=== PATIENT | male | born 1990 | race Caucasian/White ===

== ENCOUNTER 2016-06-28 04:35 | Emergency (ER) | payer OTHER ==
[2016-06-28 04:50] VITALS: TEMP 97.8
[2016-06-28] MEDS ORDERED: MORPHINE SULFATE 4 MG/ML SYRINGE IM STA (05:14)
[2016-06-28] MEDS ORDERED: IBUPROFEN 600 MG TAB PO STA (05:14)
[2016-06-28] MEDS ORDERED: ONDANSETRON ODT 4 MG TAB PO STA (05:16)
--- NOTE | 2016-06-28 05:50 | XR ---
EXAM: XR Left Hip With Pelvis When Performed, 2 or 3 Views. CLINICAL HISTORY: Reason: Left hip pain TECHNIQUE: Two or three views of the left hip, with pelvis when performed. COMPARISON: No relevant prior studies available. FINDINGS: Bones/joints: No acute fracture or malalignment. Soft tissues: Unremarkable. IMPRESSION: No acute fracture or dislocation.
--- NOTE | 2016-06-28 05:54 | CT ---
EXAM: CT Lumbar Spine Without Intravenous Contrast. CLINICAL HISTORY: Reason: Pain TECHNIQUE: Axial computed tomography images of the lumbar spine without intravenous contrast. CTDI is 25.70 mGy and DLP is 905.00 mGy-cm COMPARISON: No relevant prior studies available. FINDINGS: Vertebrae: Unremarkable. No acute fracture. Discs/spinal canal/neural foramina: Small disc protrusion at L1-L2. No significant osseous spinal or foraminal stenosis. Soft tissues: Unremarkable. IMPRESSION: No acute findings.
--- NOTE | 2016-06-28 06:34 | ED ---
Lower Extremity Injury HPI - General Chief Complaint: Extremity Injury, Lower Stated Complaint: IHS/Hip Injury Time Seen by Provider: 06/28/16 05:03 Source: patient Mode of arrival: wheelchair Limitations: no limitations - History of Present Illness Initial Comments: Resented with the left hip pain it started about 11:30 and ended up coming home from work little early he denies any trauma no fall no prior injury to the left hip and neutrophils down to his knee. He denies any bowel or bladder dysfunction he denies any weakness In the left leg at the hip area does does cause him a lot of pain. Review of systems are otherwise negative - Related Data Previous Rx's Medication Instructions Recorded Cyclobenzaprine [Flexeril] 10 mg PO TID #25 tab 06/28/16 Diclofenac Sodium [Voltaren] 50 mg PO BID #30 tablet. 06/28/16 predniSONE 50 mg PO DAILY #5 tab 06/28/16 Allergies Allergy/AdvReac Type Severity Reaction Status Date / Time clarithromycin [From Biaxin] Allergy Nausea & Verified 06/28/16 04:51 Vomiting milk Allergy Nausea & Verified 06/28/16 04:51 Vomiting & Diarrhea venom-honey bee Allergy Anaphylaxis Verified 06/28/16 04:51 [bee venom (honey bee)] Review of Systems ROS Statement: Those systems with pertinent positive or pertinent negative responses have been documented in the HPI. ROS Other: All systems not noted in ROS Statement are negative. Past Medical History Past Medical History: Hypertension History of Any Multi-Drug Resistant Organisms: MRSA Date of last positivie culture/infection: 2009 MDRO Source:: r arm Past Surgical History: No Surgical Hx Reported Past Psychological History: No Psychological Hx Reported Smoking Status: Current every day smoker Past Alcohol Use History: None Reported Past Drug Use History: None Reported General Exam - General Exam Comments Initial Comments: General: The patient is awake and alert, in order distress Skin: Skin is warm and dry and no rashes or lesions are noted. Eye: Pupils are equal, round and reactive to light, extra-ocular movements are intact; there is normal conjunctiva bilaterally. Ears, nose, mouth and throat: There are moist mucous membranes and no oral lesions. Neck: The neck is supple, there is no tenderness or JVD. Cardiovascular: There is a regular rate and rhythm. No murmur, rub or gallop is appreciated. Respiratory: To auscultation bilateral, no wheezing no rhonchi no distress respiratory gomez noticed Gastrointestinal: Soft, non-distended, non-tender abdomen without masses or organomegaly noted. There is no rebound or guarding present. Bowel sounds are unremarkable. Back: There is tenderness in the left paraspinal area at the level of L5 and S1 , left sided straight leg raise is also somewhat positive, deep tendon reflexes are within normal range Musculoskeletal: Normal ROM, no tenderness, There is no pedal edema. There is no calf tenderness or swelling. No cords were appreciated. Neurological: CN II-XII intact, Cranial nerves III through XII are intact. There are no obvious motor or sensory deficits. Coordination appears grossly intact. Speech is normal. Psychiatric: Cooperative, appropriate mood & affect, normal judgment. Limitations: no limitations Course Vital Signs 06/28/16 04:46 Temperature 97.8 F Pulse Rate 89 Respiratory 18 Rate Blood Pressure 144/97 O2 Sat by Pulse 97 Oximetry X-ray of the left hip as well as lumbar spine was reviewed, both are unremarkable with those findings were discussed with the patient he be going home on Flexeril 10 mg 1 tablet 3 times a day 3 times a day as needed #30 prednisone 50 mg 1 tablet daily for next 5 days and water and 50 mg 1 tablet twice daily when necessary #30 and a he was advised to call get some rest for next 2-3 days since his work requires a lot of repetitive movements on the back Disposition Clinical Impression: Back pain, Radiculopathy Disposition: HOME SELF-CARE Condition: Good Instructions: Lumbar Radiculopathy (ED) Prescriptions: Cyclobenzaprine [Flexeril] 10 mg PO TID #25 tab Diclofenac Sodium [Voltaren] 50 mg PO BID #30 tablet. predniSONE 50 mg PO DAILY #5 tab
[2016-06-28 06:54] VITALS: BP 133/82; PULSE 95; RESP 16
== END 2016-06-28 06:53 | disposition home or self-care (01) ==
LOC: EC 04:35
DX: M54.16 Radiculopathy, lumbar region (principal); F17.200 Nicotine dependence, unspecified, uncomplicated; Z91.011 Allergy to milk products; Z91.030 Bee allergy status; Z88.1 Allergy status to other antibiotic agents
CPT/HCPCS: 73502; 72131; 99284; 96372; J2270

== ENCOUNTER 2016-08-26 03:58 | Emergency (ER) | payer OTHER ==
[2016-08-26] MEDS ORDERED: IBUPROFEN 400 MG TAB PO STA (04:39)
--- NOTE | 2016-08-26 04:42 | ED ---
Chest Pain HPI - General Chief Complaint: Chest Pain Stated Complaint: chest pain Time Seen by Provider: 08/26/16 04:32 Source: patient Mode of arrival: ambulatory Limitations: no limitations - History of Present Illness MD Complaint: chest pain Onset/Timin -: hour(s) Onset: other (While at work) Pain Location: substernal Pain Radiation: none Severity: moderate Quality: sharp Consistency: constant Improves With: nothing Worsens With: nothing Other Symptoms: cough Treatments Prior to Arrival: none - Related Data Home Medications Medication Instructions Recorded Confirmed No Known Home Medications [No 08/26/16 08/26/16 Known Home Medications] Allergies Allergy/AdvReac Type Severity Reaction Status Date / Time clarithromycin [From Biaxin] Allergy Nausea & Verified 08/26/16 04:03 Vomiting milk Allergy Nausea & Verified 08/26/16 04:03 Vomiting & Diarrhea venom-honey bee Allergy Anaphylaxis Verified 08/26/16 04:03 [bee venom (honey bee)] Review of Systems ROS Statement: Those systems with pertinent positive or pertinent negative responses have been documented in the HPI. ROS Other: All systems not noted in ROS Statement are negative. Constitutional: Denies: fever, chills, weakness Respiratory: Reports: cough. Denies: dyspnea, wheezes, hemoptysis Cardiovascular: Reports: chest pain. Denies: palpitations, dyspnea on exertion , orthopnea, edema, syncope Gastrointestinal: Denies: abdominal pain, nausea, vomiting Genitourinary: Denies: dysuria, hematuria Musculoskeletal: Denies: back pain Skin: Denies: rash Neurological: Denies: headache, weakness, numbness EKG Findings - EKG Comments: EKG Findings:: The EKG is suggestive of possible acute pericarditis. - EKG Results: EKG: interpreted by ERMD, sinus rhythm, normal axis, normal QRS, normal ST/T Past Medical History Past Medical History: Hypertension History of Any Multi-Drug Resistant Organisms: MRSA Date of last positivie culture/infection: 2009 MDRO Source:: r arm Past Surgical History: No Surgical Hx Reported Past Psychological History: No Psychological Hx Reported Smoking Status: Current every day smoker Past Alcohol Use History: None Reported Past Drug Use History: None Reported General Exam Limitations: no limitations General appearance: alert, in no apparent distress Head exam: Present: atraumatic, normocephalic Respiratory exam: Present: normal lung sounds bilaterally. Absent: respiratory distress, wheezes, rales, rhonchi, stridor, chest wall tenderness Cardiovascular Exam: Present: regular rate, normal rhythm, normal heart sounds. Absent: systolic murmur, diastolic murmur, rubs, gallop GI/Abdominal exam: Present: soft. Absent: distended, tenderness, guarding, rebound, mass Extremities exam: Present: normal inspection, normal capillary refill. Absent: pedal edema, calf tenderness Back exam: Present: normal inspection. Absent: CVA tenderness (R), CVA tenderness (L) Neurological exam: Present: alert, CN II-XII intact. Absent: normal gait, motor sensory deficit Skin exam: Present: warm, dry, intact, normal color. Absent: rash Course Vital Signs 08/26/16 08/26/16 04:00 05:43 Temperature 98.6 F 97.3 F L Pulse Rate 84 86 Respiratory 20 18 Rate Blood Pressure 155/103 131/75 O2 Sat by Pulse 98 97 Oximetry Disposition Clinical Impression: Pericarditis Disposition: HOME SELF-CARE Condition: Good Instructions: Acute Pericarditis (ED) Referrals: None,Stated [Primary Care Provider] - 1-2 days
[2016-08-26 05:18] LABS: Basophils # (A) 0.1 k/uL (0-0.2); Basophils % (A) 1 %; CH 29.3; CHCM 34.7; Eosinophils # (A) 0.3 k/uL (0-0.7); Eosinophils % (A) 3 %; HCT 48.1 % (39.0-53.0); HDW 2.55; HGB 16.4 gm/dL (13.0-17.5); Luc # (Auto) 0.23; Luc % (Auto) 2; Lymphocytes % (A) 27 %; MCH 28.8 pg (25.0-35.0); MCV 84.8 fL (80.0-100.0); Mean Platelet Volume 6.8; Monocytes # (A) 0.8 k/uL (0-1.0); Monocytes % (A) 7 %; Neutrophils # (A) 6.8 k/uL (1.3-7.7); Neutrophils % (A) 60 %; RBC 5.68 m/uL (4.30-5.90); RDW 12.9 % (11.5-15.5); WBC 11.2 k/uL (3.8-10.6); WBC (Perox) 11.13
[2016-08-26 05:30] LABS: ALT 42 U/L (21-72); AST 26 U/L (17-59); Alkaline Phosphatase 56 U/L (38-126); Amylase 45 U/L (30-110); Anion Gap 11 mmol/L; Blood Urea Nitrogen 17 mg/dL (9-20); Calcium 9.7 mg/dL (8.4-10.2); Carbon Dioxide 24 mmol/L (22-30); Chloride 107 mmol/L (98-107); Glucose 94 mg/dL (74-99); Non-African American GFR(MDRD) >60 (>60 ml/min/1.73 sqM); Potassium 4.2 mmol/L (3.5-5.1); Sodium 142 mmol/L (137-145); Total Bilirubin 0.7 mg/dL (0.2-1.3); Total Protein 7.4 g/dL (6.3-8.2)
[2016-08-26 05:44] VITALS: BP 131/75; PULSE 86; RESP 18; TEMP 97.3
--- NOTE | 2016-08-26 06:03 | XR ---
EXAM: XR Chest, 2 Views CLINICAL HISTORY: Reason: Chest Pain TECHNIQUE: Frontal and lateral views of the chest. COMPARISON: CXR 01/02/15 FINDINGS: Lungs: Unremarkable. No consolidation. Pleural space: Unremarkable. No pneumothorax. Heart: Unremarkable. No cardiomegaly. Mediastinum: Unremarkable. Bones/joints: Unremarkable. IMPRESSION: Unremarkable chest x-rays.
== END 2016-08-26 06:29 | disposition home or self-care (01) ==
LOC: EC 03:58
DX: I31.9 Disease of pericardium, unspecified (principal); F17.200 Nicotine dependence, unspecified, uncomplicated; Z86.14 Personal history of Methicillin resistant Staphylococcus aureus infection; Z88.1 Allergy status to other antibiotic agents; Z91.030 Bee allergy status; Z91.011 Allergy to milk products
CPT/HCPCS: 36415; 71020; 80053; 82150; 83690; 84484; 85025; 93005; 99285

== ENCOUNTER 2017-08-25 03:19 | Observation (INO) | payer OTHER ==
[2017-08-25] MEDS ORDERED: ONDANSETRON 4 MG/2 ML VIAL IVP STA (03:57)
[2017-08-25] MEDS ORDERED: SODIUM CHLORIDE 0.9% 1,000 ML IV STA (03:57)
[2017-08-25] MEDS ORDERED: NITROGLYCERIN OINT 1 INCH/GM PACKET TOPICAL STA (03:57)
[2017-08-25] MEDS ORDERED: MORPHINE SULFATE 4 MG/0.8 ML SYRINGE (INJ) IV STA (03:57)
[2017-08-25] MEDS ORDERED: NITROGLYCERIN SL TABS 0.4 MG TAB SUBLINGUAL STA (03:57)
[2017-08-25 04:07] LABS: Basophils % (A) 0 %; Eosinophils # (A) 0.3 k/uL (0-0.7); Eosinophils % (A) 3 %; HCT 48.3 % (39.0-53.0); HGB 16.1 gm/dL (13.0-17.5); Lymphocytes # (A) 3.1 k/uL (1.0-4.8); Lymphocytes % (A) 27 %; MCH 27.5 pg (25.0-35.0); MCHC 33.3 g/dL (31.0-37.0); MCV 82.6 fL (80.0-100.0); Mean Platelet Volume 7.7; Monocytes # (A) 0.8 k/uL (0-1.0); Monocytes % (A) 7 %; Neutrophils # (A) 7.2 k/uL (1.3-7.7); Neutrophils % (A) 62 %; Platelet Count 282 k/uL (150-450); RBC 5.84 m/uL (4.30-5.90); RDW 12.8 % (11.5-15.5); WBC 11.5 k/uL (3.8-10.6)
[2017-08-25 04:16] LABS: ALT 30 U/L (21-72); AST 24 U/L (17-59); Albumin 4.8 g/dL (3.5-5.0); Alkaline Phosphatase 70 U/L (38-126); Anion Gap 17 mmol/L; Blood Urea Nitrogen 20 mg/dL (9-20); Calcium 10.1 mg/dL (8.4-10.2); Carbon Dioxide 23 mmol/L (22-30); Chloride 104 mmol/L (98-107); Glucose 110 mg/dL (74-99); Magnesium 1.9 mg/dL (1.6-2.3); Potassium 3.8 mmol/L (3.5-5.1); Sodium 144 mmol/L (137-145); Total Bilirubin 0.3 mg/dL (0.2-1.3); Total Protein 7.3 g/dL (6.3-8.2)
[2017-08-25 04:22] LABS: D-Dimer 0.2 mg/L FEU (<0.60); INR 1.1 (<1.2); Partial Thromboplastin Time 24.6 sec (22.0-30.0); Prothrombin Time 10.7 sec (9.0-12.0)
[2017-08-25 04:30] LABS: Creatine Kinase 188 U/L (55-170)
[2017-08-25 04:43] LABS: Creatine Kinase MB 2.1 ng/mL (0.0-2.4); Troponin I <0.012 ng/mL (0.000-0.034)
--- NOTE | 2017-08-25 04:49 | XR ---
EXAM: XR Chest, 2 Views CLINICAL HISTORY: Chest Pain TECHNIQUE: Frontal and lateral views of the chest. COMPARISON: Chest radiograph 08/26/2016 FINDINGS: Lungs: Lungs are clear without focal infiltrates or consolidations. Pleural space: No evidence of pleural effusion or pneumothorax. Heart: Heart size is within normal limits. Mediastinum: Mediastinal structures are unremarkable. Bones/joints: Imaged bony thorax is unremarkable. Other findings: No significant change since 08/26/2016 IMPRESSION: No evidence of acute cardiopulmonary disease.
[2017-08-25] MEDS ORDERED: IBUPROFEN 600 MG TAB PO STA (04:51)
[2017-08-25] MEDS ORDERED: NITROGLYCERIN SL TABS 0.4 MG TAB SUBLINGUAL PRN (05:06)
[2017-08-25] MEDS ORDERED: ACETAMINOPHEN TAB 325 MG TAB PO PRN (05:06)
[2017-08-25] MEDS ORDERED: MORPHINE SULFATE 4 MG/0.8 ML SYRINGE (INJ) IV PRN (05:06)
--- NOTE | 2017-08-25 05:06 | ED ---
Chest Pain HPI - General Chief Complaint: Chest Pain Stated Complaint: chest pain Time Seen by Provider: 08/25/17 03:30 Source: patient Mode of arrival: ambulatory Limitations: no limitations - History of Present Illness Initial Comments: 36 years old male presents with the chest pain started about 2 AM today at that time he was not exerting he was doing office work, vomiting chest pain at this point is some 6/10 and it gets worse with a deep breaths he denies any fever no chills he has not been coughing up any phlegm he does smoke he has been smoking for last 10 years and their family history his grandparents have heart disease and now he denies any family history of blood clots in the legs or in the lungs - Related Data Home Medications Medication Instructions Recorded Confirmed No Known Home Medications [No 08/26/16 08/26/16 Known Home Medications] Allergies Allergy/AdvReac Type Severity Reaction Status Date / Time clarithromycin [From Biaxin] Allergy Nausea & Verified 08/25/17 03:26 Vomiting milk Allergy Nausea & Verified 08/25/17 03:26 Vomiting & Diarrhea venom-honey bee Allergy Anaphylaxis Verified 08/25/17 03:26 [bee venom (honey bee)] Review of Systems ROS Statement: Those systems with pertinent positive or pertinent negative responses have been documented in the HPI. ROS Other: All systems not noted in ROS Statement are negative. EKG Findings - EKG Comments: EKG Findings:: EKG is normal sinus rhythm ventricular rate 76 AK interval is 146 QRS duration is 100 QT/QTC 346 6/409 review of this EKG does not reveal any ST elevation or ST depression Past Medical History Past Medical History: Hypertension History of Any Multi-Drug Resistant Organisms: MRSA Date of last positivie culture/infection: 2009 MDRO Source:: r arm Past Surgical History: No Surgical Hx Reported Past Psychological History: No Psychological Hx Reported Smoking Status: Current every day smoker Past Alcohol Use History: None Reported Past Drug Use History: None Reported General Exam - General Exam Comments Initial Comments: General: The patient is awake and alert, in no distress, and does not appear acutely ill. Skin: Skin is warm and dry and no rashes or lesions are noted. Eye: Pupils are equal, round and reactive to light, extra-ocular movements are intact; there is normal conjunctiva bilaterally. Ears, nose, mouth and throat: There are moist mucous membranes and no oral lesions. Neck: The neck is supple, there is no tenderness or JVD. Cardiovascular: There is a regular rate and rhythm. No murmur, rub or gallop is appreciated. Respiratory: To auscultation bilateral, no wheezing no rhonchi no distress respiratory gomez noticed Gastrointestinal: Soft, non-distended, non-tender abdomen without masses or organomegaly noted. There is no rebound or guarding present. Bowel sounds are unremarkable. Back: There is no tenderness to palpation in the midline. There is no obvious deformity. Musculoskeletal: Normal ROM, no tenderness, There is no pedal edema. There is no calf tenderness or swelling. No cords were appreciated. Neurological: CN II-XII intact, Cranial nerves III through XII are intact. There are no obvious motor or sensory deficits. Coordination appears grossly intact. Speech is normal. Psychiatric: Cooperative, appropriate mood & affect, normal judgment. Limitations: no limitations Course Vital Signs 08/25/17 03:23 Temperature 98 F Pulse Rate 78 Respiratory 16 Rate Blood Pressure 166/104 O2 Sat by Pulse 98 Oximetry During reassessment noticed that he is EKG is unremarkable d-dimer, troponin, chest x-ray, CBC, compressive metabolic panel are all unremarkable he be admitted to Dr. Wolf service and cardiology be consulted Disposition Clinical Impression: Chest pain Disposition: ADMITTED IP TO THIS HOSP Condition: Good Referrals: None,Stated [Primary Care Provider] - 1-2 days
[2017-08-25 05:21] VITALS: RESP 18
--- NOTE | 2017-08-25 07:46 | HP ---
HISTORY AND PHYSICAL CHIEF COMPLAINT: A 26-year-old white male he is exerting himself in the office. He had some vomiting with some chest pain 5 to 6 out of 10, worse with deep breath. Denies any fever, chills, coughing or phlegm. He has smoked for the last 10 years. His family has heart disease in his grandparents, blood clots in the lungs. MEDICATIONS: Medicines none. ALLERGIES: Home medicines ALLERGIC TO MILK, BIAXIN, BEE VENOM. REVIEW OF SYSTEMS: Fourteen-point review of systems negative except for mentioned in HPI. EKG shows sinus rhythm. PAST MEDICAL HISTORY: Hypertension and MRSA. SOCIAL HISTORY: Current everyday smoker. PHYSICAL EXAM: Vital signs stable, afebrile. Cardiovascular S1, S2. LUNGS: Clear. GI soft, nontender. No chest wall tenderness. Back, no masses, excoriations, bruising. Range of motion full x4. Neurologic: Cranial nerves intact. Psych: Fair mood and affect. Temp 98, pulse 78, respiratory 16, blood pressure 166/104. ASSESSMENT: 1. Chest pain. 2. Elevated hypertension. Cardiology is consulted. Please see further orders in chart. MMODL / IJN: [id number] /
--- NOTE | 2017-08-25 09:13 | CONS ---
CONSULTATION CHIEF COMPLAINT: Chest pain. Mr. Upton is a 26-year-old gentleman with no significant past medical history who had an episode of chest discomfort that radiated to the right side of his back and down his leg yesterday while he was at work. It is sudden onset, moderate intensity, sharp, associated with some element of nausea, but there was no diaphoresis. No dizziness. No syncope and no focal neurological deficits. Since the patient gradually became chest pain free after coming here and has remained pain-free since. An EKG does not reveal ischemic changes. One set of troponin is negative. There is no prior cardiac history. His coronary risk factors in the form of smoking. PAST MEDICAL HISTORY: Negative. MEDICATIONS: None. ALLERGIES: None. FAMILY HISTORY: Negative for premature coronary artery disease. SOCIAL HISTORY: Significant for smoking. There is no history of EtOH abuse or drug abuse. REVIEW OF SYSTEMS: HEENT is unremarkable. CARDIAC: As described above. RESPIRATORY: Negative. GI: Negative. GENITOURINARY: Negative. ALLERGY/IMMUNOLOGY: Negative. SKIN: Negative. MUSCULOSKELETAL: Negative. ENDOCRINE: Negative. HEMATOLOGICAL: Negative. DERM: Negative. CONSTITUTIONAL: Negative. ONCOLOGICAL: Negative. Rest of the system review is not relevant. PHYSICAL EXAM: On exam, comfortable at rest. Vital signs are stable. There is no jugular venous distention. Carotid upstrokes normal. There is no bruit. Chest exam reveals good air entry bilaterally. Heart exam reveals first and second heart sounds. No gallop. No murmur. No rub. Abdomen is soft, nontender. Examination of extremities did not reveal any edema. Peripheral pulses are felt. EKG does not reveal ischemic changes. Cardiac enzymes have been negative. Hemoglobin is normal at 16. Potassium is 3.8. Creatinine is 0.84. First set of troponin is negative. EKG is normal. ASSESSMENT: 1. Precordial chest pain. 2. Smoking. PLAN: Patient's chest discomfort is sharp, atypical. EKG does not reveal ischemic changes. One set of troponin is negative. I am going to obtain one other set of troponin. Feed him, ambulate him. Obtain a 2D echo. If this looks normal, he can be discharged home and have an outpatient stress test. I advised the patient to quit smoking. MMODL / IJN: [id number] /
--- NOTE | 2017-08-25 09:55 | ECHOF ---
Referral Reason: MEASUREMENTS -------- HEIGHT: 152.4 cm WEIGHT: 9.1 kg BP: RVIDd: 2.6 cm (< 3.3) IVSd: 1.0 cm (0.6 - 1.1) LVIDd: 3.7 cm (3.9 - 5.3) LVPWd: 0.9 cm (0.6 - 1.1) IVSs: 1.5 cm LVIDs: 2.5 cm LVPWs: 1.2 cm LA Diam: 3.0 cm (2.7 - 3.8) Ao Diam: 3.0 cm (2.0 - 3.7) LA Diam: 3.5 cm (2.7 - 3.8) MV EXCURSION: 19.783 mm (> 18.000) MV EF SLOPE: 117 mm/s (70 - 150) EPSS: 0.2 cm MV E Jed: 0.74 m/s MV DecT: 186 ms MV A Jed: 0.50 m/s MV E/A Ratio: 1.47 RAP: 5.00 mmHg RVSP: 13.79 mmHg FINDINGS -------- Sinus rhythm. This was a technically good study. LV size, wall thickness and systolic function are normal, with an EF greater than 55%. The right ventricle is normal in size. , and the LA measures 3.0cm. The right atrial size is normal. The aortic valve is trileaflet, and appears structurally normal. No aortic stenosis or regurgitation. Mild mitral regurgitation is present. Mild tricuspid regurgitation present. There is no evidence of pulmonary hypertension. The right v entricular systolic pressure, as measured by Doppler, is 13.79mmHg. There is no pulmonic regurgitation present. The aortic root size is normal. There is no pericardial effusion. CONCLUSIONS -------- 1. LV size, wall thickness and systolic function are normal, with an EF greater than 55%. 2. The aortic valve is trileaflet, and appears structurally normal. No aortic stenosis or regurgitati on. 3. Mild mitral regurgitation is present. 4. Mild tricuspid regurgitation present. 5. There is no evidence of pulmonary hypertension. 6. The right ventricular systolic pressure, as measured by Doppler, is 13.79mmHg. 7. There is no pulmonic regurgitation present. 8. The aortic root size is normal. 9. There is no pericardial effusion. CHRONIC SPECIALIST: Isabel James RDCS
[2017-08-25 09:56] LABS: Creatine Kinase 127 U/L (55-170)
[2017-08-25 10:09] LABS: Creatine Kinase MB 1.6 ng/mL (0.0-2.4); Troponin I <0.012 ng/mL (0.000-0.034)
[2017-08-25] MEDS ORDERED: MORPHINE ORAL SOLN 10 MG/5 ML CUP PO PRN (10:45)
[2017-08-25 11:48] VITALS: BP 119/69; PULSE 68; TEMP 97.6
[2017-08-26] MEDS ORDERED: ASPIRIN 325 MG TAB PO SCH (09:00)
--- NOTE | 2017-10-01 20:55 | DS ---
DISCHARGE SUMMARY ADMITTED: 08/25/2017. DISCHARGE DATE: 08/25/2017. No home medicines were given. CONDITION: Stable. PROGNOSIS: Guarded. Ambulate as tolerated. HOSPITAL COURSE: The patient was admitted with atypical chest pain. Cardiology saw the patient and cleared for discharge. Echo was normal. D-dimer is negative. Chest x-ray was negative. Cleared by Cardiology for discharge. Follow up as outpatient with precordial chest pain. Nicotine addiction. MMODL / IJN: [id number] /
== END 2017-08-25 13:37 | disposition home or self-care (01) ==
LOC: EC 03:19 → 3OBS 05:06
PROVIDERS: ADMIT Family Medicine; ATTEND Family Medicine
DX: R07.2 Precordial pain (principal); I10 Essential (primary) hypertension; Z86.14 Personal history of Methicillin resistant Staphylococcus aureus infection; F17.200 Nicotine dependence, unspecified, uncomplicated; Z71.6 Tobacco abuse counseling; Z88.1 Allergy status to other antibiotic agents; Z91.030 Bee allergy status; Z91.011 Allergy to milk products
CPT/HCPCS: 96374; 99285; 36415; 93005; 93306; 85379; 80053; 82550; 82553; 83735; 84484; 85025; 85610; 85730; 71046; G0378; J2405

== ENCOUNTER 2017-11-05 16:48 | Emergency (ER) | payer OTHER ==
[2017-11-05 16:54] VITALS: BP 153/101; PULSE 96; RESP 18; TEMP 98.2
[2017-11-05] MEDS ORDERED: KETOROLAC 60 MG/2 ML VIAL IM STA (17:54)
--- NOTE | 2017-11-05 18:18 | ED ---
General Adult HPI - General Chief complaint: Back Pain/Injury Stated complaint: BACK PAIN Time Seen by Provider: 11/05/17 17:42 Source: patient, RN notes reviewed Mode of arrival: ambulatory Limitations: no limitations - History of Present Illness Initial comments: Patient for 26-year-old male presenting to the emergency room today with a chief complaint of increased lower back pain as her last night. He does admit that he just finished sitting up a camper. He states he was walking away when he began feeling increased pain to right side of his lower back. He denies any radicular pain. Denies any saddle anesthesia. Denies any bowel or bladder incontinence retention. Patient admits that the pain is worse with bending, turning, twisting. Patient states he tried anti-inflammatories at home with little relief of symptoms. Patient denies any other complaints. Patient denies any recent fever, chills, shortness of breath, chest pain, abdominal pain, nausea or vomiting, numbness or tingling, dysuria or hematuria, constipation, headaches or visual changes, or any other complaints. - Related Data Home Medications Medication Instructions Recorded Confirmed Ibuprofen [Motrin Ib] 400 mg PO Q6H PRN 11/05/17 11/05/17 Naproxen Sodium [Aleve] 220 mg PO BID PRN 11/05/17 11/05/17 Previous Rx's Medication Instructions Recorded Ibuprofen [Motrin] 800 mg PO Q6HR #30 tab 11/05/17 Orphenadrine [Norflex] 100 mg PO Q12H #20 tablet.er 11/05/17 Allergies Allergy/AdvReac Type Severity Reaction Status Date / Time clarithromycin [From Biaxin] Allergy Nausea & Verified 11/05/17 18:08 Vomiting milk Allergy Nausea & Verified 11/05/17 18:08 Vomiting & Diarrhea venom-honey bee Allergy Anaphylaxis Verified 11/05/17 18:08 [bee venom (honey bee)] Review of Systems ROS Statement: Those systems with pertinent positive or pertinent negative responses have been documented in the HPI. ROS Other: All systems not noted in ROS Statement are negative. Past Medical History Past Medical History: Hypertension History of Any Multi-Drug Resistant Organisms: MRSA Date of last positivie culture/infection: 2009 MDRO Source:: r arm Past Surgical History: No Surgical Hx Reported Past Anesthesia/Blood Transfusion Reactions: No Reported Reaction Past Psychological History: No Psychological Hx Reported Smoking Status: Current every day smoker Past Alcohol Use History: None Reported Past Drug Use History: None Reported - Past Family History Father Family Medical History: Diabetes Mellitus, Hypertension Mother Family Medical History: Diabetes Mellitus, Hypertension Brother(s) History Unknown: Yes Son(s) Family Medical History: Thyroid Disorder Additional Family Medical History / Comment(s): 1 son born with every organ outside of body Daughter(s) Family Medical History: Seizure Disorder General Exam - General Exam Comments Initial Comments: General: The patient is awake and alert, in no distress, and does not appear acutely ill. Eye: Pupils are equal, round and reactive to light, extra-ocular movements are intact. No nystagmus. There is normal conjunctiva bilaterally. No signs of icterus. Ears, nose, mouth and throat: There are moist mucous membranes and no oral lesions. Neck: The neck is supple, there is no tenderness or JVD. Cardiovascular: There is a regular rate and rhythm. No murmur, rub or gallop is appreciated. Respiratory: Lungs are clear to auscultation, respirations are non-labored, breath sounds are equal. No wheezes, stridor, rales, or rhonchi. Gastrointestinal: Soft, non-distended, non-tender abdomen without masses or organomegaly noted. There is no rebound or guarding present. No CVA tenderness. Musculoskeletal: Patient shows limited range of motion with bending and twisting due to pain in the lower back. Mild tenderness from L3 to L5. Increased paravertebral tenderness on the right side of the lumbar spine. Strength 5/5. Sensation intact. Pulses equal bilaterally 2+. Neurological: A&O x 3. CN II-XII intact, There are no obvious motor or sensory deficits. Coordination appears grossly intact. Speech is normal. Skin: Skin is warm and dry and no rashes or lesions are noted. Psychiatric: Cooperative, appropriate mood & affect, normal judgment. Limitations: no limitations Course Vital Signs 11/05/17 16:51 Temperature 98.2 F Pulse Rate 96 Respiratory 18 Rate Blood Pressure 153/101 O2 Sat by Pulse 98 Oximetry Medical Decision Making - Medical Decision Making X-rays reviewed are negative for any acute abnormalities. Patient will be continued on anti-inflammatories and started on muscle relaxer for his symptoms. He is advised to follow-up family physician about elevated blood pressure and for his low back pain. Sinus symptoms of concern for increased back pain were discussed with the patient in detail and is advised return to emergency room. At this time patient will be discharged home as he has no bowel or bladder incontinence retention, saddle anesthesia, or lumbar radiculopathy. Patient's pain is reproducible with movements and to the right side of the lumbar spine is felt to be muscular skeletal. Was also advised that muscle relaxers Make him drowsy. Disposition Clinical Impression: Acute low back pain Disposition: HOME SELF-CARE Condition: Good Instructions: Acute Low Back Pain (ED) Additional Instructions: Please use medication as discussed. Please be advised also relaxer may make you drowsy and should not be used at work or while driving. Please follow-up with family doctor in the next 2 days of symptoms have not improved. Please return to emergency room if the symptoms increase or worsen or for any other concerns. Prescriptions: Ibuprofen [Motrin] 800 mg PO Q6HR #30 tab Orphenadrine [Norflex] 100 mg PO Q12H #20 tablet.er Is patient prescribed a controlled substance at d/c from ED?: No Referrals: None,Stated [Primary Care Provider] - 1-2 days Paco Landeros MD [STAFF PHYSICIAN] - 1-2 days Time of Disposition: 18:52
--- NOTE | 2017-11-05 18:44 | XR ---
EXAMINATION TYPE: XR lumbar spine 2 or 3V DATE OF EXAM: 11/05/2017 COMPARISON: NONE HISTORY: 26-year-old male low back pain TECHNIQUE: 3 views FINDINGS: 5 lumbar type vertebral bodies. Vertebral body heights are maintained and alignment is preserved. Dis c interspaces also relatively maintained. IMPRESSION: No vertebral compression collapse or malalignment.
== END 2017-11-05 19:03 | disposition home or self-care (01) ==
LOC: EC 16:48
DX: M54.5 Low back pain (principal); F17.200 Nicotine dependence, unspecified, uncomplicated; Z86.14 Personal history of Methicillin resistant Staphylococcus aureus infection; Z91.011 Allergy to milk products; Z91.030 Bee allergy status; Z88.1 Allergy status to other antibiotic agents
CPT/HCPCS: 72100; 99283; 96372; J1885

== ENCOUNTER 2019-10-07 06:10 | Emergency (ER) | payer OTHER ==
[2019-10-07] MEDS ORDERED: PROPARACAINE 0.5% OPHTH DROPS 15 ML BTL BOTH EYES STA (06:12)
[2019-10-07 06:17] VITALS: PULSE 78; RESP 18; TEMP 97.9
[2019-10-07] MEDS ORDERED: IBUPROFEN 600 MG STARTER PACK 4 TAB BTL PO STA (06:19)
[2019-10-07] MEDS ORDERED: ERYTHROMYCIN 5 MG/GM OPHTH OINT 3.5 GM TUBE BOTH EYES STA (06:19)
[2019-10-07] MEDS ORDERED: ACET/COD 300 MG/30 MG STARTER PACK 6 TAB BTL PO STA (06:19)
[2019-10-07] MEDS ORDERED: FLUORESCEIN STRIPS 1 MG STRIP BOTH EYES ONE (06:21)
--- NOTE | 2019-10-07 06:35 | ED ---
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 He woke at 3:00 this morning and now having difficulty with seeing and redness over bilateral eyelids and pain within both eyes. Patient states that he does not wear glasses. 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 He reports initially thought he had sand in his eye so took a shower. - Related Data Home Medications Medication Instructions Recorded Confirmed Ibuprofen [Motrin Ib] 400 mg PO Q6H PRN 11/05/17 11/05/17 Naproxen Sodium [Aleve] 220 mg PO BID PRN 11/05/17 11/05/17 Previous Rx's Medication Instructions Recorded Ibuprofen [Motrin] 800 mg PO Q6HR #30 tab 11/05/17 Orphenadrine [Norflex] 100 mg PO Q12H #20 tablet.er 11/05/17 Allergies Allergy/AdvReac Type Severity Reaction Status Date / Time clarithromycin [From Biaxin] Allergy Nausea & Verified 10/07/19 06:17 Vomiting milk Allergy Nausea & Verified 10/07/19 06:17 Vomiting & Diarrhea venom-honey bee Allergy Anaphylaxis Verified 10/07/19 06:17 [bee venom (honey bee)] Review of Systems ROS Statement: Those systems with pertinent positive or pertinent negative responses have been documented in the HPI. ROS Other: All systems not noted in ROS Statement are negative. Past Medical History Past Medical History: Hypertension History of Any Multi-Drug Resistant Organisms: MRSA Date of last positivie culture/infection: 2009 MDRO Source:: r arm Past Surgical History: No Surgical Hx Reported Past Anesthesia/Blood Transfusion Reactions: No Reported Reaction Past Psychological History: No Psychological Hx Reported Smoking Status: Current every day smoker Past Alcohol Use History: None Reported Past Drug Use History: None Reported - Past Family History Father Family Medical History: Diabetes Mellitus, Hypertension Mother Family Medical History: Diabetes Mellitus, Hypertension Brother(s) History Unknown: Yes Son(s) Family Medical History: Thyroid Disorder Additional Family Medical History / Comment(s): 1 son born with every organ outside of body Daughter(s) Family Medical History: Seizure Disorder General Exam Limitations: no limitations General appearance: alert, in no apparent distress Head exam: Present: atraumatic, normocephalic, normal inspection Eye exam: Present: normal appearance, PERRL, EOMI, other (She has erythema over bilateral eyelids and minimal swelling. Patient has evidence of diffuse uptake over cornea with the foreseen eye exam. The distribution is consistent with where the Patient had his eyes open and consistent with welder machine operator's flash. No localized foreign body noted.). Absent: scleral icterus, conjunctival injection, periorbital swelling ENT exam: Present: normal exam, mucous membranes moist Neck exam: Present: normal inspection. Absent: tenderness, meningismus, lymphadenopathy Respiratory exam: Present: normal lung sounds bilaterally. Absent: respiratory distress, wheezes, rales, rhonchi, stridor Cardiovascular Exam: Present: regular rate, normal rhythm, normal heart sounds. Absent: systolic murmur, diastolic murmur, rubs, gallop, clicks Back exam: Present: normal inspection Neurological exam: Present: alert, oriented X3, CN II-XII intact Psychiatric exam: Present: normal affect, normal mood Skin exam: Present: warm, dry, intact, normal color. Absent: rash Course Vital Signs 10/07/19 06:11 Temperature 97.9 F Pulse Rate 78 Respiratory 18 Rate Blood Pressure 170/106 O2 Sat by Pulse 99 Oximetry Medical Decision Making - Medical Decision Making 28-year-old male present emergency room today with complaints of bilateral eye pain after welding last night without a mask on. Patient states that he woke with reflux this morning with bilateral eye irritation and erythema. Visual acuity is 20/50 bilaterally. Patient on foreseen eye exam has diffuse uptake bilaterally consistent with welder machine operator's flash. Patient intraocular eye pressure was 17 on the left in 19 on the right. Patient also has some erythema over the upper and lower eyelids. Discussed this is all consistent with welder machine operator's flash Patient was given oral analgesia, and started on erythromycin eye ointment. Advised the Patient to follow-up with ophthalmology if symptoms do not improve within the next 48 hours. I discussed Patient can apply cool compresses and continue to take antiinflammatory medication over the upper eyelids. Patient was also noted to be hypertensive emergency department. I discussed the Patient needs to adjust was with a primary care physician, however this is most likely secondary to pain. Disposition Clinical Impression: Weljoshua miller, Episode of hypertension Disposition: HOME SELF-CARE Condition: Good Instructions (If sedation given, give patient instructions): Corneal Flash [place] (ED) Additional Instructions: Patient advised to follow-up with Dr. Meléndez if symptoms continue to persist after 2 days. Putting the eye ointment and every 4 hours and applying cool compresses over the eyelids. Patient should take anti-inflammatory and pain medication as prescribed. Recommended following up with a primary care doctor in regards to monitoring blood pressure. Is patient prescribed a controlled substance at d/c from ED?: No Referrals: None,Stated [Primary Care Provider] - 1-2 days Sean Webb MD [REFERRING] - 1-2 days Zachary Pitts [STAFF PHYSICIAN] - 1-2 days Pawel Meléndez MD [STAFF PHYSICIAN] - 1-2 days Time of Disposition: 06:38
[2019-10-07 06:42] VITALS: BP 149/100
== END 2019-10-07 07:01 | disposition home or self-care (01) ==
LOC: EC 06:10
DX: H16.133 Photokeratitis, bilateral (principal); I10 Essential (primary) hypertension; F17.200 Nicotine dependence, unspecified, uncomplicated; Z88.1 Allergy status to other antibiotic agents; Z91.011 Allergy to milk products; Z91.030 Bee allergy status; Z86.14 Personal history of Methicillin resistant Staphylococcus aureus infection; W89.8XXA Exposure to other man-made visible and ultraviolet light, initial encounter; Y93.89 Activity, other specified; Y99.0 Civilian activity done for income or pay
CPT/HCPCS: 99284

== ENCOUNTER 2020-08-28 04:31 | Emergency (ER) | payer OTHER ==
[2020-08-28 04:45] VITALS: TEMP 98.2
[2020-08-28] MEDS ORDERED: ACET/COD 300 MG/30 MG STARTER PACK 6 TAB BTL PO STA (04:58)
[2020-08-28] MEDS ORDERED: predniSONE 20 MG TAB PO STA (04:58)
[2020-08-28] MEDS ORDERED: IBUPROFEN 400 MG TAB PO STA (04:58)
--- NOTE | 2020-08-28 05:11 | ED ---
Extremity Problem HPI - General Chief complaint: Extremity Problem,Nontraumatic Stated complaint: LT shoulder and rib pain Time Seen by Provider: 08/28/20 04:49 Source: patient Mode of arrival: ambulatory Limitations: no limitations - History of Present Illness Initial comments: This patient is a 29-year-old man who presents to be evaluated for left shoulder pain that is been going on for about 4 days. Patient states that it is moderate to severe aching. It is worse. Attempts to raise his arm above shoulder level. He feels best if he holds the arm in a splinted position and mentating a sling. He denies any known injury. He had not been doing any heavy lifting or exertion. Patient points to the area deep to the scapula and also deep to the deltoid muscle. Patient denies any weakness or numbness of the extremity. There are no neck pains MD Complaint: extremity pain Onset/Timin -: days(s) Location: left (Shoulder), upper extremity History of Same: No -: Yes myalgia, Yes arthralgia Radiation: none Quality: aching Consistency: constant Improves with: nothing Worsens with: other (Movement) Associated Symptoms: denies other symptoms - Related Data Home Medications Medication Instructions Recorded Confirmed Ibuprofen [Motrin Ib] 400 mg PO Q6H PRN 11/05/17 11/05/17 Naproxen Sodium [Aleve] 220 mg PO BID PRN 11/05/17 11/05/17 Previous Rx's Medication Instructions Recorded Ibuprofen [Motrin] 800 mg PO Q6HR #30 tab 11/05/17 Orphenadrine [Norflex] 100 mg PO Q12H #20 tablet.er 11/05/17 HYDROcodone/APAP 5-325MG [[place] 1 tab PO Q6HR PRN 3 Days #12 tab 08/28/20 5-325] Ibuprofen 800 mg PO TID #20 tablet 08/28/20 Allergies Allergy/AdvReac Type Severity Reaction Status Date / Time clarithromycin [From Biaxin] Allergy Nausea & Verified 08/28/20 04:45 Vomiting milk Allergy Nausea & Verified 08/28/20 04:45 Vomiting & Diarrhea venom-honey bee Allergy Anaphylaxis Verified 08/28/20 04:45 [bee venom (honey bee)] Review of Systems ROS Statement: Those systems with pertinent positive or pertinent negative responses have been documented in the HPI. ROS Other: All systems not noted in ROS Statement are negative. Constitutional: Denies: fever, chills, weakness Respiratory: Denies: cough, dyspnea Cardiovascular: Denies: chest pain, palpitations Musculoskeletal: Reports: arthralgia Skin: Denies: rash Neurological: Denies: weakness, numbness, paresthesias Past Medical History Past Medical History: Hypertension History of Any Multi-Drug Resistant Organisms: MRSA Date of last positivie culture/infection: 2009 MDRO Source:: r arm Past Surgical History: No Surgical Hx Reported Past Anesthesia/Blood Transfusion Reactions: No Reported Reaction Past Psychological History: No Psychological Hx Reported Smoking Status: Current every day smoker Past Alcohol Use History: None Reported Past Drug Use History: None Reported - Past Family History Father Family Medical History: Diabetes Mellitus, Hypertension Mother Family Medical History: Diabetes Mellitus, Hypertension Brother(s) History Unknown: Yes Son(s) Family Medical History: Thyroid Disorder Additional Family Medical History / Comment(s): 1 son born with every organ outside of body Daughter(s) Family Medical History: Seizure Disorder General Exam Limitations: no limitations General appearance: alert, in no apparent distress Head exam: Present: atraumatic, normocephalic Neck exam: Present: normal inspection, full ROM. Absent: tenderness Cardiovascular Exam: Present: other (Left radial pulse and normal in strength, good capillary refill.) Left General: Present: other, normal inspection. Absent: laceration, abrasion, nail injury (#), foreign body, amputation, avulsion Shoulder Exam: Present: other (Patient has positive Bustamante test). Absent: full ROM, tenderness, swelling, abrasion, laceration, ecchymosis, deformity, crepitus, dislocation, erythema Upper Arm exam: Present: normal inspection, full ROM. Absent: tenderness, swelling Elbow exam: Present: normal inspection, full ROM. Absent: tenderness, swelling Forearm Wrist exam: Present: normal inspection, full ROM. Absent: tenderness, swelling Hand Wrist exam: Present: normal inspection, full ROM. Absent: tenderness, swelling Neuro motor exam: Present: wrist extension intact, thumb opposition intact, thumb IP flexion intact, thumb adduction intact, fingers 2-5 abduction intact Neurosensory exam: Present: 2-point discrimination, radial nerve intact, ulnar nerve intact, median nerve intact Vascular: Present: normal capillary refill. Absent: vascular compromise Neurological exam: Absent: motor sensory deficit (No deficit throughout left upper extremity.) Skin exam: Present: warm, dry, intact, normal color. Absent: rash Course Vital Signs 08/28/20 04:41 Temperature 98.2 F Pulse Rate 108 H Respiratory 18 Rate Blood Pressure 165/98 O2 Sat by Pulse 99 Oximetry Medical Decision Making - Medical Decision Making Patient is 29-year-old man with 4 days of left shoulder pain. He did not have any preceding trauma or exertion. On the exam there is no bony point tenderness. Discussed with patient that at this point x-rays will probably not be diagnostic and recommend follow with orthopedics for repeat physical and if there is no improvement will require MRI. At this point exam most suggestive of impingement or possible rotator cuff injury. There is no sign of any neurovascular injury. Discussed appropriate further care and follow-up as well as return parameters Disposition Clinical Impression: Shoulder injury Disposition: HOME SELF-CARE Condition: Good Instructions (If sedation given, give patient instructions): Shoulder Pain (ED) Prescriptions: Ibuprofen 800 mg PO TID #20 tablet HYDROcodone/APAP 5-325MG [[place] 5-325] 1 tab PO Q6HR PRN 3 Days #12 tab PRN Reason: Pain Is patient prescribed a controlled substance at d/c from ED?: No Referrals: None,Stated [Primary Care Provider] - 1-2 days Matteo Weinberg MD [STAFF PHYSICIAN] - 1-2 days
[2020-08-28 06:27] VITALS: BP 158/94; PULSE 99; RESP 16
== END 2020-08-28 06:27 | disposition home or self-care (01) ==
LOC: EC 04:31
DX: S49.92XA Unspecified injury of left shoulder and upper arm, initial encounter (principal); F17.200 Nicotine dependence, unspecified, uncomplicated; I10 Essential (primary) hypertension; X58.XXXA Exposure to other specified factors, initial encounter
CPT/HCPCS: 99282; J7512

== ENCOUNTER 2020-11-18 01:11 | Emergency (ER) | payer OTHER ==
[2020-11-18 01:19] VITALS: RESP 18
[2020-11-18] MEDS ORDERED: ONDANSETRON 4 MG/2 ML VIAL IVP STA (01:27)
[2020-11-18] MEDS ORDERED: KETOROLAC 15 MG/ML 1 ML VIAL IVP STA (01:27)
[2020-11-18] MEDS ORDERED: SODIUM CHLORIDE 0.9% 1,000 ML IV STA (01:27)
--- NOTE | 2020-11-18 01:39 | ED ---
General Adult HPI - General Chief complaint: Abdominal Pain Stated complaint: Abdominal pain Time Seen by Provider: 11/18/20 01:22 Source: patient Mode of arrival: ambulatory Limitations: no limitations - History of Present Illness Initial comments: 29-year-old male presents to the emergency room for a chief complaint of back pain. Patient states about 4 hours her to arrival he developed sharp lower back pain radiating to his abdomen. States it will not go away. She states the pain is severe. Admits to nausea but denies vomiting. Denies fevers or diarrhea. Patient has never had kidney stones.Patient has no other complaints at this time including shortness of breath, chest pain, nausea or vomiting, headache, or visual changes. - Related Data Home Medications Medication Instructions Recorded Confirmed Ibuprofen [Motrin Ib] 400 mg PO Q6H PRN 11/05/17 11/05/17 Naproxen Sodium [Aleve] 220 mg PO BID PRN 11/05/17 11/05/17 Previous Rx's Medication Instructions Recorded Ibuprofen [Motrin] 800 mg PO Q6HR #30 tab 11/05/17 Orphenadrine [Norflex] 100 mg PO Q12H #20 tablet.er 11/05/17 HYDROcodone/APAP 5-325MG [[place] 1 tab PO Q6HR PRN 3 Days #12 tab 08/28/20 5-325] Ibuprofen 800 mg PO TID #20 tablet 08/28/20 Ibuprofen [Motrin] 600 mg PO Q6HR PRN #20 tab 11/18/20 Ondansetron [Zofran ODT] 4 mg PO Q8HR PRN #15 tab 11/18/20 Tamsulosin [Flomax] 0.4 mg PO DAILY #20 cap 11/18/20 Allergies Allergy/AdvReac Type Severity Reaction Status Date / Time clarithromycin [From Biaxin] Allergy Nausea & Verified 11/18/20 01:18 Vomiting milk Allergy Nausea & Verified 11/18/20 01:18 Vomiting & Diarrhea venom-honey bee Allergy Anaphylaxis Verified 11/18/20 01:18 [bee venom (honey bee)] Review of Systems ROS Statement: Those systems with pertinent positive or pertinent negative responses have been documented in the HPI. ROS Other: All systems not noted in ROS Statement are negative. Past Medical History Past Medical History: Hypertension History of Any Multi-Drug Resistant Organisms: MRSA Date of last positivie culture/infection: 2009 MDRO Source:: r arm Past Surgical History: No Surgical Hx Reported Past Anesthesia/Blood Transfusion Reactions: No Reported Reaction Past Psychological History: No Psychological Hx Reported Smoking Status: Current every day smoker Past Alcohol Use History: None Reported Past Drug Use History: None Reported - Past Family History Father Family Medical History: Diabetes Mellitus, Hypertension Mother Family Medical History: Diabetes Mellitus, Hypertension Brother(s) History Unknown: Yes Son(s) Family Medical History: Thyroid Disorder Additional Family Medical History / Comment(s): 1 son born with every organ outside of body Daughter(s) Family Medical History: Seizure Disorder General Exam Limitations: no limitations General appearance: alert, in no apparent distress Head exam: Present: atraumatic, normocephalic, normal inspection Eye exam: Present: normal appearance, PERRL, EOMI. Absent: scleral icterus, conjunctival injection, periorbital swelling ENT exam: Present: normal exam, mucous membranes moist Neck exam: Present: normal inspection, full ROM. Absent: tenderness, meningismus, lymphadenopathy Respiratory exam: Present: normal lung sounds bilaterally. Absent: respiratory distress, wheezes, rales, rhonchi, stridor Cardiovascular Exam: Present: regular rate, normal rhythm, normal heart sounds. Absent: systolic murmur, diastolic murmur, rubs, gallop, clicks GI/Abdominal exam: Present: soft, tenderness (Mild left lower quadrant tenderness. No other abdominal tenderness.), normal bowel sounds. Absent: distended, guarding, rebound, rigid Back exam: Present: CVA tenderness (L). Absent: CVA tenderness (R) Course Vital Signs 11/18/20 11/18/20 01:17 02:04 Temperature 98 F Pulse Rate 86 71 Respiratory 18 18 Rate Blood Pressure 168/118 149/102 O2 Sat by Pulse 99 96 Oximetry Medical Decision Making - Medical Decision Making Vitals are stable. Patient initially hypertensive likely secondary to pain. HPI physical exam is documented. CBC did show leukocytosis which is likely reactive. CMP unremarkable. Urinalysis does show [address] abdomen and pelvis was ordered which revealed a small 2 mm left UVJ with mild left-sided hydronephrosis. Patient was given pain medication and had signifi cant improvement in symptoms. On reevaluation patient is resting comfortably. She can be discharged home to follow up with primary care/urology. Will return here for any worsening symptoms. - Lab Data Result diagrams: 11/18/20 01:39 11/18/20 01:39 Lab Results 11/18/20 11/18/20 11/18/20 Range/Units 01:39 01:39 01:39 WBC 19.7 H (3.8-10.6) k/uL RBC 5.62 (4.30-5.90) m/uL Hgb 16.3 (13.0-17.5) gm/dL Hct 47.8 (39.0-53.0) % MCV 84.9 (80.0-100.0) fL MCH 29.0 (25.0-35.0) pg MCHC 34.1 (31.0-37.0) g/dL RDW 13.1 (11.5-15.5) % Plt Count 313 (150-450) k/uL MPV 8.0 Neutrophils % 79 % Lymphocytes % 12 % Monocytes % 7 % Eosinophils % 1 % Basophils % 0 % Neutrophils # 15.5 H (1.3-7.7) k/uL Lymphocytes # 2.4 (1.0-4.8) k/uL Monocytes # 1.3 H (0-1.0) k/uL Eosinophils # 0.2 (0-0.7) k/uL Basophils # 0.1 (0-0.2) k/uL Sodium 141 (137-145) mmol/L Potassium 4.2 (3.5-5.1) mmol/L Chloride 106 (98-107) mmol/L Carbon Dioxide 24 (22-30) mmol/L Anion Gap 11 mmol/L BUN 16 (9-20) mg/dL Creatinine 0.98 (0.66-1.25) mg/dL Est GFR (CKD-EPI)AfAm >90 (>60 ml/min/1.73 sqM) Est GFR (CKD-EPI)NonAf >90 (>60 ml/min/1.73 sqM) Glucose 118 H (74-99) mg/dL Calcium 10.2 (8.4-10.2) mg/dL Total Bilirubin 0.3 (0.2-1.3) mg/dL AST 41 (17-59) U/L ALT 60 H (4-49) U/L Alkaline Phosphatase 77 (38-126) U/L Total Protein 7.2 (6.3-8.2) g/dL Albumin 4.7 (3.5-5.0) g/dL Amylase 49 (30-110) U/L Lipase 99 (23-300) U/L Urine Color Yellow Urine Appearance Clear (Clear) Urine pH 6.0 (5.0-8.0) Ur Specific [place] 1.037 H (1.001-1.035) Urine Protein Trace H (Negative) Urine Glucose (UA) Negative (Negative) Urine Ketones Trace H (Negative) Urine Blood Moderate H (Negative) Urine Nitrite Negative (Negative) Urine Bilirubin Negative (Negative) Urine Urobilinogen 2.0 (<2.0) mg/dL Ur Leukocyte Esterase Negative (Negative) Urine RBC 13 H (0-5) /hpf Urine WBC 3 (0-5) /hpf Ur Squamous Epith Cells <1 (0-4) /hpf Amorphous Sediment Rare H (None) /hpf Urine Mucus Moderate H (None) /hpf Disposition Clinical Impression: Kidney stone on left side Disposition: HOME SELF-CARE Condition: Good Instructions (If sedation given, give patient instructions): Kidney Stones (ED) Additional Instructions: Please take Motrin as needed for pain. If pain is severe take Tylenol 3. Take Zofran for nausea. Take Flomax as directed. Follow up with urology or primary care. Return to the emergency room for any worsening symptoms or is u ncontrolled. Prescriptions: Tamsulosin [Flomax] 0.4 mg PO DAILY #20 cap Ibuprofen [Motrin] 600 mg PO Q6HR PRN #20 tab PRN Reason: Pain Ondansetron [Zofran ODT] 4 mg PO Q8HR PRN #15 tab PRN Reason: Nausea Is patient prescribed a controlled substance at d/c from ED?: No Referrals: Enrique Duque MD [STAFF PHYSICIAN] - 1-2 days Time of Disposition: 03:17
[2020-11-18] MEDS ORDERED: HYDROmorphone 1 MG/ML 1 ML SYRINGE IVP STA (01:54)
--- NOTE | 2020-11-18 02:13 | CT ---
EXAMINATION TYPE: CT abdomen pelvis wo con DATE OF EXAM: 11/18/2020 COMPARISON: None HISTORY: bilateral flank pain CT DLP: 839.2 mGycm Automated exposure control for dose reduction was used. Images obtained from the diaphragm to the floor the pelvis with no contrast. Lung bases are clear. There is no pleural effusion. Heart size is normal. There is no pericardial eff usion. Liver spleen stomach pancreas gallbladder appear normal. The bile ducts are not dilated. There is no adrenal mass kidneys have normal size. There is 1 mm calculus anterior left kidney. There is mild left-sided hydronephrosis and minimal hydroureter. There is 2 mm calculus at the left ureter ovesical junction. Bladder is almost empty. There is no inguinal hernia. There is no free fluid in the pelvis. There is no pelvic mass. There is no mesenteric edema. There is no ascites or free air. There is no evidence of bowel obstruction. Appendix appears normal. The lumbar vertebra have normal alignment. There is no compression fracture. Posterior elements are i ntact. The bony pelvis is intact. The hip joints are intact. There is no hip dysplasia. IMPRESSION: Small obstructing calculus at the left ureterovesical junction. Mild left-sided hydronephrosis. Small left renal calculus.
[2020-11-18 02:14] LABS: Basophils # (A) 0.1 k/uL (0-0.2); Basophils % (A) 0 %; Eosinophils # (A) 0.2 k/uL (0-0.7); Eosinophils % (A) 1 %; HCT 47.8 % (39.0-53.0); HGB 16.3 gm/dL (13.0-17.5); Lymphocytes # (A) 2.4 k/uL (1.0-4.8); Lymphocytes % (A) 12 %; MCHC 34.1 g/dL (31.0-37.0); MCV 84.9 fL (80.0-100.0); Monocytes # (A) 1.3 k/uL (0-1.0); Monocytes % (A) 7 %; Neutrophils # (A) 15.5 k/uL (1.3-7.7); Neutrophils % (A) 79 %; Platelet Count 313 k/uL (150-450); RBC 5.62 m/uL (4.30-5.90); RDW 13.1 % (11.5-15.5); WBC 19.7 k/uL (3.8-10.6)
[2020-11-18 02:24] LABS: ALT 60 U/L (4-49); AST 41 U/L (17-59); African American GFR (CKD) >90 (>60 ml/min/1.73 sqM); Albumin 4.7 g/dL (3.5-5.0); Alkaline Phosphatase 77 U/L (38-126); Amylase 49 U/L (30-110); Anion Gap 11 mmol/L; Blood Urea Nitrogen 16 mg/dL (9-20); Calcium 10.2 mg/dL (8.4-10.2); Carbon Dioxide 24 mmol/L (22-30); Chloride 106 mmol/L (98-107); Glucose 118 mg/dL (74-99); Lipase 99 U/L (23-300); Non-African American GFR(CKD) >90 (>60 ml/min/1.73 sqM); Potassium 4.2 mmol/L (3.5-5.1); Sodium 141 mmol/L (137-145); Total Bilirubin 0.3 mg/dL (0.2-1.3); Total Protein 7.2 g/dL (6.3-8.2)
[2020-11-18 02:36] LABS: Amorphous Sediment,Urine Rare /hpf; Appearance,Urine Clear (Clear); Bilirubin,Urine Negative (Negative); Blood,Urine Moderate (Negative); Color,Urine Yellow; Glucose,Urine (UA) Negative (Negative); Ketones,Urine Trace (Negative); Leukocyte Esterase,Urine Negative (Negative); Mucus,Urine Moderate /hpf; Nitrite,Urine Negative (Negative); Protein,Urine Trace (Negative); RBC,Urine 13 /hpf (0-5); Specific Gravity,Urine 1.037 (1.001-1.035); Squamous Epithelial Cell,Urine <1 /hpf (0-4); WBC,Urine 3 /hpf (0-5)
[2020-11-18] MEDS ORDERED: ACET/COD 300 MG/30 MG STARTER PACK 6 TAB BTL PO STA (03:17)
[2020-11-18 03:39] VITALS: BP 149/90; PULSE 92; TEMP 97.9
== END 2020-11-18 03:39 | disposition home or self-care (01) ==
LOC: EC 01:11
DX: N13.2 Hydronephrosis with renal and ureteral calculous obstruction (principal); I10 Essential (primary) hypertension; F17.200 Nicotine dependence, unspecified, uncomplicated; Z79.1 Long term (current) use of non-steroidal anti-inflammatories (NSAID); Z79.899 Other long term (current) drug therapy
CPT/HCPCS: 36415; 80053; 82150; 83690; 85025; 81001; 74176; 99284; 96374; 96375 ×2; 96361; J2405; J1170; J1885

== ENCOUNTER 2021-08-16 13:58 | Emergency (ER) | payer OTHER ==
[2021-08-16 14:07] VITALS: TEMP 98.2
[2021-08-16] MEDS ORDERED: SODIUM CHLORIDE 0.9% 1,000 ML IV STA (15:21)
[2021-08-16] MEDS ORDERED: ONDANSETRON 4 MG/2 ML VIAL IVP STA (15:31)
[2021-08-16] MEDS ORDERED: diphenhydrAMINE 50 MG/ML 1 ML VIAL IVP STA (15:31)
[2021-08-16] MEDS ORDERED: KETOROLAC 15 MG/ML 1 ML VIAL IVP STA (15:31)
--- NOTE | 2021-08-16 16:02 | ED ---
General Adult HPI - General Chief complaint: Headache Stated complaint: headache Time Seen by Provider: 08/16/21 14:57 Source: patient Mode of arrival: ambulatory Limitations: no limitations - History of Present Illness Initial comments: Patient is a 30-year-old male presenting with chief complaint of headache. Patient states that headache has persisted over the last 3 days, it was gradual in onset and has become increasingly intense. Patient states that it is over the face on the top of the head, it spares the occipital region. Patient states that at initial onset he could tell "oh I am starting to get a headache", but over the last 3 days the pain has become unbearable. He states that even contact with the skin overlying the affected areas provokes pain. Patient admits to light and sound sensitivity, nausea, one episode of vomiting today. He has been taking Motrin and NyQuil with little pain relief. He denies any weakness, difficulty speaking, numbness, tingling, sudden onset "thunderclap" headache, history of migraines, vision or hearing changes, overall, chest pain, shortness of breath, abdominal pain, hematemesis, hematochezia, URI symptoms, fever, chills, cough. - Related Data Home Medications Medication Instructions Recorded Confirmed Ibuprofen [Motrin Ib] 400 mg PO Q6H PRN 11/05/17 11/05/17 Naproxen Sodium [Aleve] 220 mg PO BID PRN 11/05/17 11/05/17 Previous Rx's Medication Instructions Recorded Ibuprofen [Motrin] 800 mg PO Q6HR #30 tab 11/05/17 Orphenadrine [Norflex] 100 mg PO Q12H #20 tablet.er 11/05/17 HYDROcodone/APAP 5-325MG [[place] 1 tab PO Q6HR PRN 3 Days #12 tab 08/28/20 5-325] Ibuprofen 800 mg PO TID #20 tablet 08/28/20 Ibuprofen [Motrin] 600 mg PO Q6HR PRN #20 tab 11/18/20 Ondansetron [Zofran ODT] 4 mg PO Q8HR PRN #15 tab 11/18/20 Tamsulosin [Flomax] 0.4 mg PO DAILY #20 cap 11/18/20 Allergies Allergy/AdvReac Type Severity Reaction Status Date / Time clarithromycin [From Biaxin] Allergy Nausea & Verified 08/16/21 14:07 Vomiting milk Allergy Nausea & Verified 08/16/21 14:07 Vomiting & Diarrhea venom-honey bee Allergy Anaphylaxis Verified 08/16/21 14:07 [bee venom (honey bee)] Review of Systems ROS Statement: Those systems with pertinent positive or pertinent negative responses have been documented in the HPI. ROS Other: All systems not noted in ROS Statement are negative. Past Medical History Past Medical History: Hypertension History of Any Multi-Drug Resistant Organisms: MRSA Date of last positivie culture/infection: 2009 MDRO Source:: r arm Past Surgical History: No Surgical Hx Reported Past Anesthesia/Blood Transfusion Reactions: No Reported Reaction Past Psychological History: No Psychological Hx Reported Smoking Status: Vaper Past Alcohol Use History: None Reported Past Drug Use History: None Reported - Past Family History Father Family Medical History: Diabetes Mellitus, Hypertension Mother Family Medical History: Diabetes Mellitus, Hypertension Brother(s) History Unknown: Yes Son(s) Family Medical History: Thyroid Disorder Additional Family Medical History / Comment(s): 1 son born with every organ outside of body Daughter(s) Family Medical History: Seizure Disorder General Exam Limitations: no limitations General appearance: alert, in no apparent distress Head exam: Present: atraumatic, normocephalic, normal inspection Eye exam: Present: normal appearance, PERRL, EOMI. Absent: scleral icterus, conjunctival injection, periorbital swelling Pupils: Present: normal accommodation Neck exam: Present: normal inspection Respiratory exam: Present: normal lung sounds bilaterally. Absent: respiratory distress, wheezes, rales, rhonchi, stridor Cardiovascular Exam: Present: regular rate, normal rhythm, normal heart sounds. Absent: systolic murmur, diastolic murmur, rubs, gallop, clicks Neurological exam: Present: alert, oriented X3, CN II-XII intact Expanded Patient oriented to: Present: person, place, time Cranial nerves: EOM's Intact: Normal, Facial Sensation: Normal Ataxia: Absent: yes Motor strength exam: RUE: 5, LUE: 5 Eye Response: (4) open spontaneously Motor Response: (6) obeys commands Verbal Response: (5) oriented Psychiatric exam: Present: normal affect, normal mood Skin exam: Present: warm, dry, intact, normal color. Absent: rash Course Vital Signs 08/16/21 08/16/21 14:04 16:45 Temperature 98.2 F Pulse Rate 109 H 101 H Respiratory 16 18 Rate Blood Pressure 130/91 123/79 O2 Sat by Pulse 96 98 Oximetry Medical Decision Making - Medical Decision Making Patient is a 30-year-old male presenting with chief complaint of headache. Patient states he became and getting an insidious onset headache covering the face and top of the head, sparing the occipital region, about 3 days ago. Patient has been taking Motrin and NyQuil for pain relief without success. Patient admits to light and sound sensitivity, nausea, vomiting. He denies any vision or hearing changes, weakness, numbness, tingling, difficulty walking or speaking. On examination there are no focal neurological deficits, patient is complaining of light sensitivity, strength 5 out of 5. Patient was given migraine cocktail of Toradol, Benadryl, Zofran and 1 L fluid bolus. On reassessment patient stated that pain had not decreased. Patient was given 4 mg of morphine and 6 mg Decadron. I discussed with the patient possibility of a computed tomography scan today, when I presented him with the pros and cons of the study, patient opted to not receive the scan today. This decision was alejo ched through shared decision making. On reassessment patient stated that his pain had greatly decreased. Patient still showed no neurological deficits. He appears stable for discharge with outpatient follow-up at this time. Follow-up with PCP in one to 2 days. Report back to ER if any worsening symptoms. He may take Motrin, Tylenol, Benadryl, caffeine for symptoms. Educated on return parameters and answered all questions. Patient conveyed verbal understanding and agreed to the plan. Disposition Clinical Impression: Headache Disposition: HOME SELF-CARE Condition: Good Instructions (If sedation given, give patient instructions): Acute Headache (ED) Additional Instructions: Follow-up with PCP in 1-2 days. Report back to ER if any worsening symptoms. Take Motrin, Tylenol, Benadryl, caffeine at home as needed for pain control. Is patient prescribed a controlled substance at d/c from ED?: No Referrals: None,Stated [Primary Care Provider] - 1-2 days Time of Disposition: 17:48
[2021-08-16 16:46] VITALS: BP 123/79; PULSE 101; RESP 18
[2021-08-16] MEDS ORDERED: DEXAMETHASONE SOD PHOSPHATE 10 MG/ML 1 ML VIAL IVP STA (16:59)
[2021-08-16] MEDS ORDERED: MORPHINE SULFATE 4 MG/ML SYRINGE IVP STA (17:00)
== END 2021-08-16 17:56 | disposition home or self-care (01) ==
LOC: EC 13:58
DX: R51.9 Headache, unspecified (principal); I10 Essential (primary) hypertension; F17.209 Nicotine dependence, unspecified, with unspecified nicotine-induced disorders; Z91.011 Allergy to milk products; Z88.1 Allergy status to other antibiotic agents; Z91.030 Bee allergy status
CPT/HCPCS: 99283; 96374; 96375; 96361; J2270; J1200; J1100; J2405; J1885

== ENCOUNTER 2021-08-17 20:50 | Emergency (ER) | payer OTHER ==
[2021-08-17] MEDS ORDERED: PROMETHAZINE 25 MG TAB PO STA (21:31)
[2021-08-17 21:55] VITALS: RESP 18; TEMP 97.8
--- NOTE | 2021-08-17 22:00 | ED ---
URI HPI - General Chief Complaint: Upper Respiratory Infection Stated Complaint: Cough, Vomiting, Difficulty Breathing Time Seen by Provider: 08/17/21 21:07 Source: patient Mode of arrival: ambulatory Limitations: no limitations - History of Present Illness Initial Comments: This patient is a 30-year-old man who presents to have evaluation mainly for co ugh. His symptoms had started over the weekend. He initially developed a fever which did resolve with medication, he then had headache and was seen here yesterday regarding that. He has also had cough going on for the past day which is nonproductive. He has also had a couple of episodes of posttussive emesis and he had a coughing episode from which she felt a difficult to catch his breath. He is not having shortness of breath or now. MD Complaint: fever, cough -: days(s) Severity: moderate Consistency: constant Improves With: nothing Worsens With: nothing Associated Symptoms: fever, headache, cough Treatments Prior to Arrival: "cold medicine" - Related Data Previous Rx's Medication Instructions Recorded Promethazine 6.25MG/5Ml [Phenergan 5 ml PO Q4HR PRN #120 ml 08/17/21 Syrup] Allergies Allergy/AdvReac Type Severity Reaction Status Date / Time clarithromycin [From Biaxin] Allergy Nausea & Verified 08/17/21 21:38 Vomiting milk Allergy Nausea & Verified 08/17/21 21:38 Vomiting & Diarrhea venom-honey bee Allergy Anaphylaxis Verified 08/17/21 21:38 [bee venom (honey bee)] Review of Systems ROS Statement: Those systems with pertinent positive or pertinent negative responses have been documented in the HPI. ROS Other: All systems not noted in ROS Statement are negative. Constitutional: Reports: fever. Denies: chills, weakness ENT: Denies: congestion Respiratory: Reports: cough, dyspnea. Denies: wheezes, hemoptysis, stridor Cardiovascular: Denies: chest pain, palpitations, edema, syncope Gastrointestinal: Reports: vomiting. Denies: abdominal pain Genitourinary: Denies: dysuria, hematuria Musculoskeletal: Denies: back pain Skin: Denies: rash Neurological: Reports: headache. Denies: weakness, numbness, paresthesias, confusion Past Medical History Past Medical History: Hypertension History of Any Multi-Drug Resistant Organisms: MRSA Date of last positivie culture/infection: 2009 MDRO Source:: r arm Past Surgical History: No Surgical Hx Reported Past Anesthesia/Blood Transfusion Reactions: No Reported Reaction Past Psychological History: No Psychological Hx Reported Smoking Status: Former smoker, Vaper Past Alcohol Use History: None Reported Past Drug Use History: None Reported - Past Family History Father Family Medical History: Diabetes Mellitus, Hypertension Mother Family Medical History: Diabetes Mellitus, Hypertension Brother(s) History Unknown: Yes Son(s) Family Medical History: Thyroid Disorder Additional Family Medical History / Comment(s): 1 son born with every organ outside of body Daughter(s) Family Medical History: Seizure Disorder General Exam Limitations: no limitations General appearance: alert, in no apparent distress Head exam: Present: atraumatic, normocephalic Eye exam: Present: normal appearance. Absent: scleral icterus, conjunctival injection ENT exam: Present: normal oropharynx Neck exam: Present: normal inspection, full ROM. Absent: tenderness, meningismus Respiratory exam: Present: normal lung sounds bilaterally. Absent: respiratory distress, wheezes, rales, rhonchi, stridor Cardiovascular Exam: Present: normal rhythm, tachycardia, normal heart sounds. Absent: systolic murmur, diastolic murmur, rubs, gallop GI/Abdominal exam: Present: soft. Absent: distended, tenderness, guarding, rebound, rigid, mass Extremities exam: Present: normal inspection, normal capillary refill. Absent: pedal edema, calf tenderness Back exam: Present: normal inspection. Absent: CVA tenderness (R), CVA tenderness (L) Neurological exam: Present: alert Skin exam: Present: warm, dry, intact, normal color. Absent: rash Course Vital Signs 08/17/21 08/17/21 08/17/21 20:54 21:50 21:54 Temperature 98.7 F 97.8 F Pulse Rate 119 H 95 Respiratory 20 18 18 Rate Blood Pressure 178/126 152/102 O2 Sat by Pulse 96 98 Oximetry Medical Decision Making - Lab Data Lab Results 08/17/21 08/17/21 Range/Units 21:48 21:48 Coronavirus (PCR) Not Detected (Not Detectd) Influenza Type A RNA Detected H (Not Detectd) Influenza Type B (PCR) Not Detected (Not Detectd) Disposition Clinical Impression: Influenza Disposition: HOME SELF-CARE Condition: Good Instructions (If sedation given, give patient instructions): Influenza (DC) Prescriptions: Promethazine 6.25MG/5Ml [Phenergan Syrup] 5 ml PO Q4HR PRN #120 ml PRN Reason: Cough Is patient prescribed a controlled substance at d/c from ED?: No Referrals: None,Stated [Primary Care Provider] - 1-2 days
--- NOTE | 2021-08-17 22:09 | XR ---
EXAMINATION TYPE: XR chest 2V DATE OF EXAM: 08/17/2021 COMPARISON: 08/25/2017 HISTORY: Chest pain. Cough and fever TECHNIQUE: FINDINGS: Heart and mediastinum are normal. Lungs are clear. Diaphragm is normal. Bony thorax appears normal. IMPRESSION: Normal chest. No change
[2021-08-17 22:54] VITALS: BP 152/103; PULSE 88
== END 2021-08-17 22:54 | disposition home or self-care (01) ==
LOC: EC 20:50
DX: J10.1 Influenza due to other identified influenza virus with other respiratory manifestations (principal); I10 Essential (primary) hypertension; Z20.822 Contact with and (suspected) exposure to COVID-19; Z87.891 Personal history of nicotine dependence
CPT/HCPCS: 71046; 87502; 87635; 99284

== ENCOUNTER 2021-08-18 20:03 | Emergency (ER) | payer OTHER ==
[2021-08-18] MEDS ORDERED: KETOROLAC 15 MG/ML 1 ML VIAL IVP STA (23:18)
[2021-08-18] MEDS ORDERED: ONDANSETRON 4 MG/2 ML VIAL IVP STA (23:18)
[2021-08-18 23:30] LABS: Basophils # (A) 0.1 k/uL (0-0.2); Basophils % (A) 1 %; Eosinophils % (A) 0 %; Lymphocytes # (A) 1.1 k/uL (1.0-4.8); Lymphocytes % (A) 16 %; MCH 28.9 pg (25.0-35.0); MCHC 33.9 g/dL (31.0-37.0); MCV 85.1 fL (80.0-100.0); Mean Platelet Volume 8.1; Monocytes # (A) 0.6 k/uL (0-1.0); Monocytes % (A) 8 %; Neutrophils % (A) 72 %; Platelet Count 191 k/uL (150-450); RBC 5.87 m/uL (4.30-5.90); RDW 13.3 % (11.5-15.5); WBC 6.9 k/uL (3.8-10.6)
[2021-08-18 23:47] LABS: ALT 64 U/L (4-49); AST 41 U/L (17-59); African American GFR (CKD) >90 (>60 ml/min/1.73 sqM); Alkaline Phosphatase 53 U/L (38-126); Anion Gap 9 mmol/L; Blood Urea Nitrogen 14 mg/dL (9-20); Calcium 8.5 mg/dL (8.4-10.2); Carbon Dioxide 29 mmol/L (22-30); Chloride 100 mmol/L (98-107); Glucose 88 mg/dL (74-99); Non-African American GFR(CKD) >90 (>60 ml/min/1.73 sqM); Potassium 4.3 mmol/L (3.5-5.1); Sodium 138 mmol/L (137-145); Total Bilirubin 0.3 mg/dL (0.2-1.3); Total Protein 6.7 g/dL (6.3-8.2)
[2021-08-19] MEDS ORDERED: METOCLOPRAMIDE 5 MG/ML 2 ML VIAL IVP STA (00:32)
[2021-08-19] MEDS ORDERED: SODIUM CHLORIDE 0.9% 1,000 ML IV ONE ×2 (00:32)
--- NOTE | 2021-08-19 01:22 | ED ---
Fever HPI - General Chief Complaint: Fever Stated Complaint: Migraine Time Seen by Provider: 08/18/21 22:15 Source: patient Mode of arrival: wheelchair - History of Present Illness MD Complaint: fever, malaise -: days(s) Temperature Source: oral Associated Symptoms: chills, myalgias, headache, cough - Related Data Previous Rx's Medication Instructions Recorded Promethazine 6.25MG/5Ml [Phenergan 5 ml PO Q4HR PRN #120 ml 08/17/21 Syrup] Allergies Allergy/AdvReac Type Severity Reaction Status Date / Time clarithromycin [From Biaxin] Allergy Nausea & Verified 08/18/21 22:29 Vomiting milk Allergy Nausea & Verified 08/18/21 22:29 Vomiting & Diarrhea venom-honey bee Allergy Anaphylaxis Verified 08/18/21 22:29 [bee venom (honey bee)] Review of Systems ROS Statement: Those systems with pertinent positive or pertinent negative responses have been documented in the HPI. ROS Other: All systems not noted in ROS Statement are negative. Constitutional: Reports: fever, chills, weakness Respiratory: Reports: cough. Denies: dyspnea, wheezes Cardiovascular: Denies: chest pain Gastrointestinal: Denies: abdominal pain, vomiting, diarrhea Genitourinary: Denies: dysuria, hematuria Musculoskeletal: Reports: myalgia Skin: Denies: rash Neurological: Reports: headache. Denies: weakness, numbness, paresthesias Past Medical History Past Medical History: Hypertension History of Any Multi-Drug Resistant Organisms: MRSA Date of last positivie culture/infection: 2009 MDRO Source:: r arm Past Surgical History: No Surgical Hx Reported Past Anesthesia/Blood Transfusion Reactions: No Reported Reaction Past Psychological History: No Psychological Hx Reported Smoking Status: Former smoker, Vaper Past Alcohol Use History: None Reported Past Drug Use History: None Reported - Past Family History Father Family Medical History: Diabetes Mellitus, Hypertension Mother Family Medical History: Diabetes Mellitus, Hypertension Brother(s) History Unknown: Yes Son(s) Family Medical History: Thyroid Disorder Additional Family Medical History / Comment(s): 1 son born with every organ outside of body Daughter(s) Family Medical History: Seizure Disorder General Exam General appearance: alert, in no apparent distress Head exam: Present: atraumatic, normocephalic Eye exam: Present: normal appearance. Absent: scleral icterus, conjunctival injection ENT exam: Present: normal oropharynx Neck exam: Present: normal inspection Respiratory exam: Present: normal lung sounds bilaterally. Absent: respiratory distress, wheezes, rales, rhonchi, stridor Cardiovascular Exam: Present: normal rhythm, tachycardia, normal heart sounds. Absent: systolic murmur, diastolic murmur, rubs, gallop GI/Abdominal exam: Present: soft. Absent: distended, tenderness, guarding, rebound, rigid Extremities exam: Present: normal inspection, normal capillary refill. Absent: pedal edema, calf tenderness Back exam: Absent: CVA tenderness (R), CVA tenderness (L) Neurological exam: Present: alert Skin exam: Present: warm, dry, intact, normal color. Absent: rash Course Vital Signs 08/18/21 08/19/21 08/19/21 20:40 00:44 02:00 Temperature 101.2 F H 100.2 F H Pulse Rate 118 H 93 92 Respiratory 18 20 24 Rate Blood Pressure 128/82 125/81 127/75 O2 Sat by Pulse 98 96 96 Oximetry 08/19/21 03:17 Temperature 98.8 F Pulse Rate 69 Respiratory 20 Rate Blood Pressure 121/71 O2 Sat by Pulse 97 Oximetry Medical Decision Making - Lab Data Result diagrams: 08/18/21 23:21 08/18/21 23:21 Lab Results 08/18/21 08/18/21 Range/Units 23:21 23:21 WBC 6.9 (3.8-10.6) k/uL RBC 5.87 (4.30-5.90) m/uL Hgb 17.0 (13.0-17.5) gm/dL Hct 50.0 (39.0-53.0) % MCV 85.1 (80.0-100.0) fL MCH 28.9 (25.0-35.0) pg MCHC 33.9 (31.0-37.0) g/dL RDW 13.3 (11.5-15.5) % Plt Count 191 (150-450) k/uL MPV 8.1 Neutrophils % 72 % Lymphocytes % 16 % Monocytes % 8 % Eosinophils % 0 % Basophils % 1 % Neutrophils # 5.0 (1.3-7.7) k/uL Lymphocytes # 1.1 (1.0-4.8) k/uL Monocytes # 0.6 (0-1.0) k/uL Eosinophils # 0.0 (0-0.7) k/uL Basophils # 0.1 (0-0.2) k/uL Sodium 138 (137-145) mmol/L Potassium 4.3 (3.5-5.1) mmol/L Chloride 100 (98-107) mmol/L Carbon Dioxide 29 (22-30) mmol/L Anion Gap 9 mmol/L BUN 14 (9-20) mg/dL Creatinine 1.03 (0.66-1.25) mg/dL Est GFR (CKD-EPI)AfAm >90 (>60 ml/min/1.73 sqM) Est GFR (CKD-EPI)NonAf >90 (>60 ml/min/1.73 sqM) Glucose 88 (74-99) mg/dL Calcium 8.5 (8.4-10.2) mg/dL Total Bilirubin 0.3 (0.2-1.3) mg/dL AST 41 (17-59) U/L ALT 64 H (4-49) U/L Alkaline Phosphatase 53 (38-126) U/L Total Protein 6.7 (6.3-8.2) g/dL Albumin 4.0 (3.5-5.0) g/dL Disposition Clinical Impression: Influenza Disposition: HOME SELF-CARE Condition: Good Instructions (If sedation given, give patient instructions): Influenza (ED) Is patient prescribed a controlled substance at d/c from ED?: No Referrals: None,Stated [Primary Care Provider] - 1-2 days
[2021-08-19] MEDS ORDERED: ACET/COD 300 MG/30 MG STARTER PACK 6 TAB BTL PO STA (03:07)
[2021-08-19] MEDS ORDERED: ONDANSETRON 4 MG ODT STARTER PACK 2 TAB BTL PO STA (03:07)
[2021-08-19 03:21] VITALS: BP 121/71; PULSE 69; RESP 20; TEMP 98.8
== END 2021-08-19 03:21 | disposition home or self-care (01) ==
LOC: EC 20:03
DX: J10.1 Influenza due to other identified influenza virus with other respiratory manifestations (principal); I10 Essential (primary) hypertension; Z91.030 Bee allergy status; Z87.891 Personal history of nicotine dependence; Z91.011 Allergy to milk products; Z88.1 Allergy status to other antibiotic agents
CPT/HCPCS: 36415; 80053; 85025; 99284; 96374; 96375 ×2; 96361; J2765; J2405; J1885; S0119

== ENCOUNTER 2022-01-10 18:21 | Emergency (ER) | payer OTHER ==
[2022-01-10 19:36] VITALS: TEMP 98.6
[2022-01-10 22:12] VITALS: PULSE 87; RESP 19
[2022-01-10 22:13] VITALS: BP 165/95
[2022-01-10] MEDS ORDERED: lisinopriL 10 MG TAB PO STA (22:15)
--- NOTE | 2022-01-10 22:33 | ED ---
General Adult HPI - General Chief complaint: Recheck/Abnormal Lab/Rx Stated complaint: hypertenstive Time Seen by Provider: 01/10/22 22:04 Source: patient, family, RN notes reviewed Mode of arrival: ambulatory Limitations: no limitations - History of Present Illness Initial comments: This is a pleasant 31-year-old male presents arise from complaint hypertension. Patient apparently went to urgent care and was sent here for hypertensive crisis. Blood pressure here is 167 or 105. Patient states he routinely runs at 180/120. Patient states this is been this way for several years. He has never sought care. Patient denying any vision changes. Denies any headache. No numbness or tingling. No dizziness. No chest pain. No difficulties with urination. Patient has a cigarette smoker and continues to do so. Patient states the reason he went to urgent cares because he went for a preemployment physical was found to be hypertensive. No headache, no fever or chills, no changes in vision or hearing, no sore throat or difficulty with speech, no neck pain, no chest pain or shortness of breath, no abdominal pain, no nausea or vomiting, no changes in urination or bowel movements, no numbness or tingling, no extremity pain, no skin rashes or lesions. Past medical, surgical, social, and family history reviewed. - Related Data Previous Rx's Medication Instructions Recorded Promethazine 6.25MG/5Ml [Phenergan 5 ml PO Q4HR PRN #120 ml 08/17/21 Syrup] lisinopriL [Prinivil] 10 mg PO DAILY #30 tab 01/10/22 Allergies Allergy/AdvReac Type Severity Reaction Status Date / Time clarithromycin [From Biaxin] Allergy Nausea & Verified 01/10/22 19:36 Vomiting milk Allergy Nausea & Verified 01/10/22 19:36 Vomiting & Diarrhea venom-honey bee Allergy Anaphylaxis Verified 01/10/22 19:36 [bee venom (honey bee)] Review of Systems ROS Statement: Those systems with pertinent positive or pertinent negative responses have been documented in the HPI. ROS Other: All systems not noted in ROS Statement are negative. Past Medical History Past Medical History: Hypertension History of Any Multi-Drug Resistant Organisms: MRSA Date of last positivie culture/infection: 2009 MDRO Source:: r arm Past Surgical History: No Surgical Hx Reported Past Anesthesia/Blood Transfusion Reactions: No Reported Reaction Past Psychological History: Anxiety, Depression Smoking Status: Current every day smoker, Vaper Past Alcohol Use History: None Reported Past Drug Use History: None Reported - Past Family History Father Family Medical History: Diabetes Mellitus, Hypertension Mother Family Medical History: Diabetes Mellitus, Hypertension Brother(s) History Unknown: Yes Son(s) Family Medical History: Thyroid Disorder Additional Family Medical History / Comment(s): 1 son born with every organ outside of body Daughter(s) Family Medical History: Seizure Disorder General Exam Limitations: no limitations General appearance: alert, in no apparent distress Head exam: Present: atraumatic, normocephalic, normal inspection Eye exam: Present: normal appearance, PERRL, EOMI. Absent: scleral icterus, conjunctival injection, periorbital swelling ENT exam: Present: normal exam, normal oropharynx, mucous membranes moist, normal external ear exam. Absent: mucous membranes dry Neck exam: Present: normal inspection, full ROM. Absent: tenderness, meningismus, lymphadenopathy Respiratory exam: Present: normal lung sounds bilaterally. Absent: respiratory distress, wheezes, rales, rhonchi, stridor, chest wall tenderness, accessory muscle use, decreased breath sounds, prolonged expiratory Cardiovascular Exam: Present: regular rate, normal rhythm, normal heart sounds. Absent: systolic murmur, diastolic murmur, rubs, gallop, clicks GI/Abdominal exam: Present: soft, normal bowel sounds. Absent: distended, tenderness, guarding, rebound, rigid Extremities exam: Present: normal inspection, full ROM, normal capillary refill. Absent: tenderness, pedal edema, joint swelling, calf tenderness Back exam: Present: normal inspection Neurological exam: Present: alert, oriented X3, CN II-XII intact Psychiatric exam: Present: normal affect, normal mood Skin exam: Present: warm, dry, intact, normal color. Absent: rash Course Vital Signs 01/10/22 01/10/22 19:33 22:11 Temperature 98.6 F Pulse Rate 97 87 Respiratory 22 19 Rate Blood Pressure 165/107 165/95 O2 Sat by Pulse 98 97 Oximetry EKG Findings - EKG Comments: EKG Findings:: EKG done at 2216 and read by the ED attending physician reveals sinus rhythm with a rate of 81, normal intervals, normal axis, no acute ST or T- wave changes noted. No change from the previous study Medical Decision Making - Lab Data Result diagrams: 01/10/22 22:28 Lab Results 01/10/22 01/10/22 Range/Units 22:28 22:48 Sodium 140 (137-145) mmol/L Potassium 4.0 (3.5-5.1) mmol/L Chloride 102 (98-107) mmol/L Carbon Dioxide 23 (22-30) mmol/L Anion Gap 15 mmol/L BUN 17 (9-20) mg/dL Creatinine 0.85 (0.66-1.25) mg/dL Est GFR (CKD-EPI)AfAm >90 (>60 ml/min/1.73 sqM) Est GFR (CKD-EPI)NonAf >90 (>60 ml/min/1.73 sqM) Glucose 101 H (74-99) mg/dL Calcium 9.5 (8.4-10.2) mg/dL Urine Color Yellow Urine Appearance Clear (Clear) Urine pH 5.5 (5.0-8.0) Ur Specific [place] 1.030 (1.001-1.035) Urine Protein Trace H (Negative) Urine Glucose (UA) Negative (Negative) Urine Ketones Negative (Negative) Urine Blood Negative (Negative) Urine Nitrite Negative (Negative) Urine Bilirubin Negative (Negative) Urine Urobilinogen <2.0 (<2.0) mg/dL Ur Leukocyte Esterase Trace H (Negative) Urine RBC 1 (0-5) /hpf Urine WBC 1 (0-5) /hpf Ur Squamous Epith Cells <1 (0-4) /hpf Urine Mucus Rare H (None) /hpf Disposition Clinical Impression: Uncontrolled hypertension, Cigarette smoker Disposition: HOME SELF-CARE Condition: Good Instructions (If sedation given, give patient instructions): How to Stop Smoking (ED), Hypertension (ED) Additional Instructions: Follow-up with your regular physician as directed. Return to the ER immediately if any symptoms worsen, new symptoms arise, or any other problems develop. Is patient prescribed a controlled substance at d/c from ED?: No Referrals: Krissy Mora MD [STAFF PHYSICIAN] - As Soon As Possible Time of Disposition: 23:26
[2022-01-10 22:47] LABS: African American GFR (CKD) >90 (>60 ml/min/1.73 sqM); Anion Gap 15 mmol/L; Blood Urea Nitrogen 17 mg/dL (9-20); Calcium 9.5 mg/dL (8.4-10.2); Carbon Dioxide 23 mmol/L (22-30); Chloride 102 mmol/L (98-107); Glucose 101 mg/dL (74-99); Non-African American GFR(CKD) >90 (>60 ml/min/1.73 sqM); Sodium 140 mmol/L (137-145)
--- NOTE | 2022-01-10 22:49 | XR ---
EXAMINATION TYPE: XR chest 2V DATE OF EXAM: 01/10/2022 COMPARISON: 08/17/2021 HISTORY: Hypertension TECHNIQUE: FINDINGS: Heart and mediastinum are normal. Lungs are clear. Diaphragm is normal. Bony thorax appears normal. IMPRESSION: Normal chest. No change.
[2022-01-10 23:01] LABS: Appearance,Urine Clear (Clear); Bilirubin,Urine Negative (Negative); Blood,Urine Negative (Negative); Color,Urine Yellow; Glucose,Urine (UA) Negative (Negative); Ketones,Urine Negative (Negative); Leukocyte Esterase,Urine Trace (Negative); Mucus,Urine Rare /hpf; Nitrite,Urine Negative (Negative); PH, Urine 5.5 (5.0-8.0); Protein,Urine Trace (Negative); RBC,Urine 1 /hpf (0-5); Squamous Epithelial Cell,Urine <1 /hpf (0-4); Urobilinogen,Urine <2.0 mg/dL (<2.0); WBC,Urine 1 /hpf (0-5)
== END 2022-01-10 23:50 | disposition home or self-care (01) ==
LOC: EC 18:21
DX: I10 Essential (primary) hypertension (principal); F17.210 Nicotine dependence, cigarettes, uncomplicated; Z88.1 Allergy status to other antibiotic agents; Z91.011 Allergy to milk products; Z91.030 Bee allergy status
CPT/HCPCS: 36415; 71046; 80048; 81001; 93005; 99283; 99284